=== PATIENT | female | born 1960 | race Caucasian/White ===

== ENCOUNTER 2019-09-06 07:50 | Outpatient (CLI) | payer MEDICARE, SELFPAY ==
--- NOTE | 2019-09-13 00:27 | SLEEP_ITS ---
Home Sleep Test DATE OF STUDY: 09/06/2019 ORDERING PHYSICIAN: Markos Snyder M.D. REASON FOR THE STUDY: CLAUDIA. HISTORY: This patient is a 59-year-old female, 5 feet tall, 175 pounds with a body mass index of 34.1. There is a history of loud snoring and waking up multiple times during sleep. She feels fatigued during the day. She falls asleep when she is supposed to be awake and this occurs without much notice. This can happen anywhere including her desk, on the sofa, on the toilet, or in the car. She has to fight very hard to stay awake in the car. This has been going on for several years. There is a positive family history with her son, her father, grandfather and uncles having sleep-disordered breathing. She occasionally awakens at night with heartburn. She has been on Nexium for 20 years. She constantly snores and is constantly loud enough that others complain about. She constantly has trouble sleeping with a cold. She does not awaken at night gasping for breath. She does not have breathing problems at night reported to her by others. She occasionally sweats excessively at night and notices her heart pounding or beating irregularly at night. She constantly falls asleep during the day frequently, involuntarily, but not while driving. She has to fight to stay awake while driving. She does not have loss of muscle tone with strong emotion. She does not feel paralyzed on waking or falling asleep. She occasionally has vivid dreamlike scenes upon awakening or falling asleep. She is never afraid to go to sleep. She rarely has nightmares. She occasionally remembers her dreams, has racing thoughts, feelings of sadness, depression and anxiety. She frequently notices parts of her body jerking at night. She occasionally kicks at night. She constantly has crawling and aching feelings in her legs. She constantly has leg pain at night. She occasionally has morning jaw pain. She does not grind her teeth at night. She is constantly bothered by pain during the day. She is frequently awaken with pain at night. She constantly wakes up feeling stiff in the morning, frequently wakes up with sore achy muscles and constantly has pain in the neck and spine. She has dizziness, fatigue, takes sedatives, Z-Quill, has sexual problems, memory problems, and insomnia. Normal bedtime is 4 to 430 a.m., taking a 0.5 hour to 2 hours to fall asleep typically waking 2-4 times to go to the bathroom, smoke a cigarette or weed for a while. She will stay awake on average 15 minutes to 1 hour. She awakens around 12 noon or as late as 2 p.m. Weekend schedule is the same. She does take naps. A short nap is not refreshing. She is drowsy for 1 hour after waking. She feels better in the evening than other times a day. Medical comorbidities: Osteoporosis, osteoarthritis, constipation, diabetes, depression, coronary artery disease with stents, history of a non-STEMI, hypertension, dyslipidemia, diabetes type 2, chronic vertigo. Gastroesophageal reflux disease. MEDICATIONS: 1. Alendronate 70 mg weekly. 2. Aspirin 81 mg a day. 3. Cholecalciferol 50,000 units weekly. 4. Plavix 75 mg a day. 5. Diazepam 2 mg p.r.n. as omeprazole d.r. 40 mg a day. 6. Lasix 20 mg and 40 mg tablets. 7. Neurontin 300 mg. 8. Hydrocodone/acetaminophen 5/325 as needed. 9. Lispro insulin as instructed. 10. Lisinopril 10 mg a day. 11. Meclizine 25 mg as instructed. 12. Metoprolol-XL 50 mg per day. 13. Nitroglycerin 0.4 mg sublingually p.r.n. chest pain. 14. Potassium chloride ER 10 mEq daily. 15. Pramipexole 0.125 mg daily. 16. Rosuvastatin 40 mg day. HABITS: Currently smokes tobacco half pack per day, caffeine 3-4 beverages a day. No alcohol. DESCRIPTION OF THE STUDY: On the [place]
== END 2019-09-06 07:51 | disposition home or self-care (01) ==
PROVIDERS: PCP Internal Medicine; Visit Provider Internal Medicine Cardiovascular Disease
DX: G47.33 Obstructive sleep apnea (adult) (pediatric) (principal)
CPT/HCPCS: 95806

== ENCOUNTER 2019-12-28 13:09 | Outpatient (CLI) | payer MEDICARE, SELFPAY | END 2019-12-28 13:10 | disposition home or self-care (01) | PROVIDERS: PCP Internal Medicine | DX: L93.1 Subacute cutaneous lupus erythematosus (principal) | CPT/HCPCS: 36415; 86038 ==

== ENCOUNTER 2020-01-14 00:07 | Outpatient (CLI) | payer MEDICARE, SELFPAY ==
[2020-01-14 17:13] LABS: SARS-CoV-2 RNA PCR Negative
== END 2020-01-14 00:08 | disposition home or self-care (01) ==
LOC: ANHCOVIDDT 00:07
PROVIDERS: PCP Internal Medicine; Visit Provider Plastic Surgery
DX: Z01.812 Encounter for preprocedural laboratory examination (principal); Z11.59 Encounter for screening for other viral diseases
CPT/HCPCS: 87635; C9803; U0003

== ENCOUNTER 2020-01-14 08:49 | Outpatient (CLI) | payer MEDICARE, SELFPAY ==
[2020-01-14 09:15] LABS: Blood Urea Nitrogen 18 mg/dL (7-17); Calcium 9.3 mg/dL (8.4-10.2); Carbon Dioxide 25 mmol/L (22-30); Chloride 103 mmol/L (98-107); Estimated Glomerular Filt Rate > 60; Glucose 182 mg/dL (65-105); Sodium 136 mmol/L (137-145)
== END 2020-01-14 08:50 | disposition home or self-care (01) ==
LOC: ANHLAB 08:51
PROVIDERS: PCP Internal Medicine; Visit Provider Anesthesiology
DX: R35.8 Other polyuria (principal)
CPT/HCPCS: 36415; 80048; 87635; C9803; U0003

== ENCOUNTER 2020-01-16 01:26 | Day surgery (SDC) | payer MEDICARE, SELFPAY ==
[2020-01-02 16:27] VITALS: BMI 34.9
--- NOTE | 2020-01-15 10:40 | HP_ITS ---
DATE OF SERVICE: Date of service wound be 01/16/2020. PREOPERATIVE DIAGNOSIS: Right carpal tunnel syndrome. HISTORY: The patient is 59. She has diabetes with peripheral neuropathy as well as a nerve conduction test documented right carpal tunnel syndrome. This has been going on since before 2010 when she had her 1st nerve conduction test. In the meantime, she has had ulnar neuroplasty both elbows and a trigger finger release, and she comes now with worsening carpal tunnel symptoms. She understands the risks of nerve injury, tendon injury, infection, stiffness, poor recovery of her premorbid status and she would like to proceed. She prefers a MAC anesthetic and she will be stopping her Plavix for 5 doses. PAST MEDICAL HISTORY: She is an insulin-dependent type 2 diabetic. She is a smoker, but on Chantix. MEDICATIONS: Her current medications include: 1. Lisinopril 10 mg one-half daily. 2. Meclizine as needed. 3. Metoprolol-XL 50 mg one-half tablet daily. 4. Nitroglycerin 0.4 mg sublingual as needed. 5. Potassium chloride. 6. Pramipexole. 7. Rosuvastatin 40 mg. 8. Alendronate 70 mg. 9. 81 mg aspirin. 10. Vitamin D3. 11. Clopidogrel 75 mg. 12. Diazepam 2 mg as needed for vertigo. 13. Nexium. 14. Furosemide. 15. Gabapentin for lower extremity neuropathy. 16. Humalog. 17. Hydrocodone/acetaminophen 5/325 for back pain. ALLERGIES: INCLUDE IBUPROFEN, TRICOR, NIACIN, AND ERYTHROMYCIN. PAST SURGICAL HISTORY: Prior surgery include heart surgery, which was a single stent placed in 2009, cholecystectomy. Chronic ailments include heart and back problems as noted and smoking history as noted. REVIEW OF SYSTEMS: Otherwise negative. FAMILY HISTORY: Noncontributory. SOCIAL HISTORY: She lives in [place]. She is not employed. She is a patient of Dr. Volodymyr Downing. PHYSICAL EXAMINATION: GENERAL: She is alert, informative adult female, in no acute distress. Height is given as 5 foot 1 inch, weight 175 pounds. HEENT: Unremarkable. CHEST: Clear to auscultation. HEART: Regular rate and rhythm by palpation. ABDOMEN: Soft and nontender. EXTREMITIES: Indicates that she uses all 4 well, but has the following: Thenar tenderness on the right, possible thenar wasting. Tinel's sign at the right wrist. Provocative pain in the right forearm and the wrist compression test was positive. ASSESSMENT: Right carpal tunnel syndrome. PLAN: Right open carpal tunnel release under MAC anesthetic. She will be holding her Plavix for 5 doses. D I MT: Gerard
[2020-01-16 07:10] VITALS: BP 132/58; PULSE 73; RESP 20; TEMP 37; O2SAT 98
--- NOTE | 2020-01-16 07:14 | WPDHPUPDATE1 ---
History and Physical Update Update Date/Time: 01/16/20 07:14 History and Physical has been reviewed, including an updated exam of the patient. There are NO changes in the patient's condition. Risks, benefits, and alternatives have been discussed and questions answered. Patient agrees to proceed with procedure.
[2020-01-16] MEDS: LACTATED RINGERS 1,000 ML 30 ML IV CONT (07:35)
[2020-01-16 07:40] LABS: Glucose Point of Care 110 (65-105)
--- NOTE | 2020-01-16 08:09 | WPDANESEPPF ---
Anes - Initial Pre Proc Eval Procedure: Operation Date: 01/16/20 09:00 Proposed Procedures p Right Open Carpal Tunnel Release - Castillo Eldridge MD Date/Time: 01/16/20 08:09 Surgeon: Castillo Eldridge MD Pre Op Diagnosis: right carpal syndrome Patient Data Age: 59 Gender: F Height: 1.52 m Weight: 80.1 kg Last Vital Signs Temp 37.0 C 01/16/20 07:10 Pulse 73 01/16/20 07:10 Resp 20 01/16/20 07:10 BP 132/58 L 01/16/20 07:10 Pulse Ox 98 01/16/20 07:10 Allergies Allergy/AdvReac Type Severity Reaction Status Date / Time ibuprofen Allergy Severe Anaphylaxis Verified 01/16/20 07:52 latex Allergy Severe POWDERED Unverified 01/16/20 07:52 GLOVES CAUSE BLISTERS ON FINGERS erythromycin base Allergy Unknown Gastrointestinal Verified 01/16/20 07:52 Upset fenofibrate Allergy Unknown Other Verified 01/16/20 07:52 niacin Allergy Unknown Other Verified 01/16/20 07:52 Home Medications Medication Instructions Recorded Confirmed Type Vitamin D3 1 cap PO DAILY 01/02/20 01/16/20 History alendronate 70 mg PO WEEKLY 01/02/20 01/16/20 History clopidogrel [Plavix] 75 mg PO DAILY 01/02/20 01/16/20 History esomeprazole magnesium 40 mg PO DAILY 01/02/20 01/16/20 History furosemide 20 mg PO HS 01/02/20 01/16/20 History furosemide 40 mg PO DAILY 01/02/20 01/16/20 History gabapentin 600 mg PO TIDHS 01/02/20 01/16/20 History hydrocodone-acetaminophen 1 - 2 tablet PO HS 01/02/20 01/16/20 History lisinopril 10 mg PO DAILY 01/02/20 01/16/20 History metoprolol succinate 25 mg PO DAILY 01/02/20 01/16/20 History naproxen 500 mg PO HS PRN 01/02/20 01/16/20 History potassium chloride 10 meq PO DAILY 01/02/20 01/16/20 History pramipexole 0.25 mg PO HS 01/02/20 01/16/20 History rosuvastatin 40 mg PO HS 01/02/20 01/16/20 History varenicline [Chantix] 1 mg PO BID 01/02/20 01/16/20 History Novolog Mix 70-30 U-100 Insuln 60 - 74 units BID 01/03/20 01/16/20 History Laboratory Tests 01/16/20 07:38 POC Capillary Glucose 110 mg/dl mg/dl (65-105) Other Studies: echocardiogram May 2018, with an EF of 70% Patient hx anesthesia problems: none Family hx anesthesia problems: none PMFSH Past Medical History Medical History (Updated 01/16/20 @ 08:12 by Reyes Randall MD) CAD (coronary artery disease) CHF (congestive heart failure) Depression Diabetes Fibromyalgia Gastroesophageal reflux disease HTN (hypertension) Hypercholesterolemia Obesity Peripheral neuropathy Restless leg syndrome Surgical History Surgical History (Updated 01/16/20 @ 08:12 by Reyes Randall MD) History of coronary artery stent placement Family History Family History (Updated 02/20/16 @ 23:19 by DOCTOR UNKNOWN) Mother Family history of malignant neoplasm, Onset Age: 62 Patient's mother is , Onset Age: 62 Father Family history of lung cancer Family history of lymphoma Family history of coronary artery disease Family history of malignant neoplasm, Onset Age: 61 Family history of diabetes mellitus in first degree relative, Onset Age: 61 Family history of heart disease in male family member before age 55, Onset Age: 61 Patient's father is , Onset Age: 61 Other Diabetes mellitus Family history of chronic obstructive pulmonary disease Family history of osteoarthritis Social History Social History Smoking status: Heavy tobacco smoker Alcohol intake: current Gender identity (if verbalized by the patient): Female Anes - Eval Final PreProcedure Day of Procedure 01/16/20 08:09 Informed Consent: The patient's anesthetic plan and its attendant risks and benefits were discussed with the patient/family/POA. Questions were solicited and answers provided to the satisfaction of the patient/family/POA.
[2020-01-16] MEDS: LIDO 1%/EPINEPHRINE 1:100,000 20 ML VIAL 5 ML INFILTRATE (10:01)
[2020-01-16] MEDS: BACITRACIN OINTMENT 15 GM TUBE 1 APPLIC TOPICAL (10:01)
--- NOTE | 2020-01-16 10:05 | PM.OP ---
Procedure Note - Brief Procedure Note - Brief Date of procedure: 01/16/20 Pre-op diagnosis: right carpal syndrome Post-op diagnosis: same Procedure performed: R OCTR Anesthesia: MAC Surgeon: Castillo Eldridge MD Estimated blood loss (mL): 0 Drains: No Packing: No Pathology: none sent Complications: No immediate complications Condition: stable Disposition: same day
[2020-01-16 10:08] VITALS: BP 109/53; PULSE 79; RESP 16; O2SAT 93
--- NOTE | 2020-01-16 10:11 | SUR.PREOP ---
0943 FAMILY UPDATE PROVIDED
[2020-01-16 10:25] VITALS: BP 111/52; PULSE 79; RESP 16; O2SAT 93
[2020-01-16 10:40] VITALS: BP 102/57; PULSE 68; RESP 16; O2SAT 94
[2020-01-16 10:55] VITALS: BP 105/52; PULSE 63; RESP 16
--- NOTE | 2020-01-16 11:59 | PM.PROC ---
Procedure Note - Detailed Date of procedure: 01/16/20 Pre-op diagnosis: right carpal syndrome Post-op diagnosis: same Procedure performed: Right open carpal tunnel release Description of procedure: The right volar wrist area was marked while the patient was in holding area. She was rolled to the operating room and placed supine on the operating table. A time-out was held and confirmed. She was given IV sedation and the extremity was prepped and draped in the usual fashion. The marking was re-identified and this area infiltrated locally with 1% lidocaine with epinephrine. The tourniquet was inflated to 250 mmHg. The incision was made in the palm dissection was carried bluntly through the subcutaneous tissue to the palmar fascia. Three retractors were placed and the fascia and the carpal ligament were incised with a 15. Blade. Under 3 point retraction the ligament was divided distally and proximally to completely release it. No unusual anatomy was noted. The skin was closed with interrupted 5 0 nylon suture in the usual bandage with Matthew wrap was applied and the tourniquet was released. This patient receives hydrocodone 5/325 on a regular basis from her primary care physician and no additional prescription was written today. She is discharged with instructions in wound care and follow-up Surgeon: Castillo Eldridge MD
--- NOTE | 2020-01-16 15:38 | SUR.PHASEII ---
PT'S FAMILY MEMBER UPDATED UPON PT'S ARRIVAL TO OP AREA.
== END 2020-01-16 11:00 | disposition home or self-care (01) ==
PROVIDERS: PCP Internal Medicine; Visit Provider Plastic Surgery
PROC: (CPT 64721; principal; 2020-01-16 09:00)
DX: G56.01 Carpal tunnel syndrome, right upper limb (principal); I11.0 Hypertensive heart disease with heart failure; I50.9 Heart failure, unspecified; I25.10 Atherosclerotic heart disease of native coronary artery without angina pectoris; M79.7 Fibromyalgia; E11.40 Type 2 diabetes mellitus with diabetic neuropathy, unspecified; K21.9 Gastro-esophageal reflux disease without esophagitis; E78.00 Pure hypercholesterolemia, unspecified; G25.81 Restless legs syndrome; F17.210 Nicotine dependence, cigarettes, uncomplicated; Z79.82 Long term (current) use of aspirin; Z79.02 Long term (current) use of antithrombotics/antiplatelets; Z79.4 Long term (current) use of insulin; E66.9 Obesity, unspecified; Z68.34 Body mass index [BMI] 34.0-34.9, adult
CPT/HCPCS: 64721; A9270; J2250; J2704; J3010; J7120